=== PATIENT | female | born 1980 | race Caucasian/White ===

== ENCOUNTER 2022-12-26 12:30 | Emergency (ER) | payer OTHER ==
[~2022-12-26] VITALS: Ht 170.2 cm; Wt 106.6 kg
[2022-12-26 12:36] VITALS: BP 142/98
[2022-12-26 13:42] LABS: Source, Urine Clean Catch
[2022-12-26 13:43] LABS: BASOPHILS ABSOLUTE AUTO 0.07 K/mm3 (0.00-0.23); BASOPHILS PERCENT AUTO 1 % (0-2); EOSINOPHILS ABSOLUTE AUTO 0.18 K/mm3 (0.00-0.68); EOSINOPHILS PERCENT AUTO 1 % (0-6); Hematocrit 30.3 % (33.0-51.0); Hemoglobin 9.8 g/dL (11.5-16.0); IMMATURE GRAN ABSOLUTE AUTO 0.18 K/mm3 (0.00-0.10); IMMATURE GRAN PERCENT AUTO 1 % (0-1); LYMPHOCYTES ABSOLUTE AUTO 2.61 K/mm3 (0.84-5.20); LYMPHOCYTES PERCENT AUTO 19 % (21-46); MONOCYTES ABSOLUTE AUTO 1.71 K/mm3 (0.16-1.47); MONOCYTES PERCENT AUTO 12 % (4-13); Mean Corpuscular HGB 26.7 pg (26.0-34.0); Mean Corpuscular HGB Conc 32.3 g/dL (31.5-36.5); Mean Corpuscular Volume 83 fL (80-100); Mean Platelet Volume 10.9 fL (9.1-12.4); NEUTROPHILS ABSOLUTE AUTO 9.09 K/mm3 (1.96-9.15); NEUTROPHILS PERCENT AUTO 66 % (41-73); Platelet Count 377 K/mm3 (150-400); RDW Coefficient Variation 13.4 % (11.7-14.2); RDW Standard Deviation 39.9 fL (35.1-46.3); Red Blood Cell Count 3.67 M/mm3 (3.80-5.20); White Blood Cell Count 13.84 K/mm3 (4.00-11.30)
[2022-12-26 13:46] LABS: Appearance, Urine Clear (Clear); Bilirubin, Urine Neg (Neg); Blood, Urine Neg (Neg); Color, Urine Yellow (P-Yellow); Glucose Qualitative, Urine Neg (Neg); Ketones, Urine 1+ (Neg); Leukocyte Esterase, Urine 1+ (Neg); Nitrite, Urine Neg (Neg); Protein, Urine 2+ (Neg); Urobilinogen, Urine 1+ (Normal)
[2022-12-26 13:54] LABS: Bacteria Rare /hpf; Mucus Light (0-Heavy); Red Blood Cells, Urine 0-2 /hpf (0-2); Squamous Epithelial Cells Many /hpf (Few)
[2022-12-26 14:03] LABS: Albumin, Blood 2.2 g/dL (3.4-5.0); Albumin/Globulin Ratio 0.4 (0.8-1.8); Bilirubin, Total 0.3 mg/dL (0.1-1.0); Bun/Creatinine Ratio 19.8 (12.0-20.0); Calcium, Blood 9.8 mg/dL (8.5-10.1); Creatinine, Blood 0.51 mg/dL (0.40-1.00); Globulin, Blood 4.9 g/dL (2.2-4.0); Potassium, Blood 4.2 mmol/L (3.5-5.5); Total Protein, Blood 7.1 g/dL (6.4-8.2)
[2022-12-27] MEDS ORDERED: ONDA4ODT MM (15:15)
== END 2022-12-26 14:01 | disposition left against medical advice (07) ==
LOC: ER 12:30
PROVIDERS: Physician Assistant; Student in an Organized Health Care Education/Training Program
DX: O26.893 Other specified pregnancy related conditions, third trimester (principal); R10.11 Right upper quadrant pain; Z3A.00 Weeks of gestation of pregnancy not specified; O21.2 Late vomiting of pregnancy; Z53.21 Procedure and treatment not carried out due to patient leaving prior to being seen by health care provider
CPT/HCPCS: 80053; 81001; 83690; 85025; 99282-25

== ENCOUNTER 2023-01-29 07:30 | Inpatient (IN) | payer OTHER ==
[2023-01-29] VITALS (46 sets, daily range): BP systolic 64–155; BP diastolic 15–103
[~2023-01-29] VITALS: Ht 170.2 cm; Wt 106.0 kg
[~2023-01-29 07:30] MED LIST: ONDA4ODT MM; PERM5TC TOP
[2023-01-29] MEDS ORDERED: PRENATAL TABLE1 EAC2 (11:26)
[2023-01-29 11:30] LABS: U Amphetamine Screen Not Detected; U Barbituate Screen Not Detected; U Benzodiazapine Screen Not Detected; U Buprenorphine Screen Not Detected; U Cannabinoids Screen Not Detected; U Cocaine Screen Not Detected; U Methadone Screen Not Detected; U Methamphetamine Screen Not Detected; U Opiates Screen Not Detected; U Oxycodone Screen Not Detected; U Phencyclidine Screen Not Detected; U Propoxyphene Screen Not Detected
[2023-01-29 12:13] LABS: BASOPHILS PERCENT AUTO 1 % (0-2); EOSINOPHILS ABSOLUTE AUTO 0.18 K/mm3 (0.00-0.68); EOSINOPHILS PERCENT AUTO 2 % (0-6); Hematocrit 31.4 % (33.0-51.0); Hemoglobin 10.1 g/dL (11.5-16.0); IMMATURE GRAN ABSOLUTE AUTO 0.09 K/mm3 (0.00-0.10); IMMATURE GRAN PERCENT AUTO 1 % (0-1); LYMPHOCYTES ABSOLUTE AUTO 2.35 K/mm3 (0.84-5.20); LYMPHOCYTES PERCENT AUTO 20 % (21-46); MONOCYTES ABSOLUTE AUTO 1.13 K/mm3 (0.16-1.47); MONOCYTES PERCENT AUTO 10 % (4-13); Mean Corpuscular HGB 25.6 pg (26.0-34.0); Mean Corpuscular HGB Conc 32.2 g/dL (31.5-36.5); Mean Corpuscular Volume 80 fL (80-100); Mean Platelet Volume 12.3 fL (9.1-12.4); NEUTROPHILS ABSOLUTE AUTO 7.93 K/mm3 (1.96-9.15); NEUTROPHILS PERCENT AUTO 67 % (41-73); Platelet Count 367 K/mm3 (150-400); RDW Coefficient Variation 16.3 % (11.7-14.2); RDW Standard Deviation 46.5 fL (35.1-46.3); Red Blood Cell Count 3.94 M/mm3 (3.80-5.20); White Blood Cell Count 11.78 K/mm3 (4.00-11.30)
--- NOTE | 2023-01-29 14:14 | NUR ---
01/29/23 1414 Makenzie Villavicencio MALE DELIVERED VIA REPEAT C/SECTION AT 1400. CORD SEGMENT COLLECTED FOR GASSES. CORD BLOOD COLLECTED FOR TYPING. TAKEN TO NURSERY BY MALVIN WALDEN AND RT ABHIJIT FOR CONTINUED RESPIRATORY CARE.
[2023-01-29 14:41] LABS: PCO2 Cord - Arterial 78.6 mmHg (40-50); pH Cord - Arterial 7.05 (7.28-7.35)
[2023-01-29 14:43] LABS: PO2 Cord - Arterial > 16 mmHg (16-20)
[2023-01-29 14:47] LABS: PCO2 Cord - Venous 75.3 mmHg (40-50); PO2 Cord - Venous < 16 mmHg (28-32); pH Umbilical Cord - Venous 7.09 (7.26-7.35)
--- NOTE | 2023-01-29 18:30 | NUR ---
REPORT TO MALVIN TA
--- NOTE | 2023-01-29 21:23 | NUR ---
NURSERY VISITATION: MOM INTO NURSERY AT 2108 TO SEE . FOB STAYED IN ROOM AFTER BEING WOKEN UP AND TOLD SHE WAS GOING TO SEE BABY, FOB BACK TO SLEEP. PT ACTING APPROPRIATELY WITH AND EXPRESSED INTEREST IN SEEING FROM BEGINNING OF SHIFT BUT HAD TO WAIT FOR SECOND STAFF MEMBER TO BE AVAILABLE FOR TRANSFER. AT BREAST DURING THIS TIME
--- NOTE | 2023-01-29 23:24 | NUR ---
NURSERY VISITATION: MOTHER INTO NURSERY AT 2318 ON 01/29/23. PT CALLED RN INTO ROOM TO REQUEST SEEING AFTER WAKING ON HER OWN. FOB REMAINS ASLEEP AT THIS TIME IN PT ROOM.
[2023-01-30 05:01] VITALS: BP 126/69
[2023-01-30 07:23] LABS: Hematocrit 23.5 % (33.0-51.0); Hemoglobin 7.6 g/dL (11.5-16.0); Mean Corpuscular HGB 25.2 pg (26.0-34.0); Mean Corpuscular HGB Conc 32.3 g/dL (31.5-36.5); Mean Corpuscular Volume 78 fL (80-100); Mean Platelet Volume 11.3 fL (9.1-12.4); Platelet Count 384 K/mm3 (150-400); RDW Coefficient Variation 15.9 % (11.7-14.2); RDW Standard Deviation 44.8 fL (35.1-46.3); Red Blood Cell Count 3.02 M/mm3 (3.80-5.20)
[2023-01-30 07:45] LABS: Albumin, Blood 1.9 g/dL (3.4-5.0); Albumin/Globulin Ratio 0.4 (0.8-1.8); Bilirubin, Total 0.3 mg/dL (0.1-1.0); Bun/Creatinine Ratio 28.2 (12.0-20.0); Calcium, Blood 8.6 mg/dL (8.5-10.1); Creatinine, Blood 0.74 mg/dL (0.40-1.00); Globulin, Blood 4.3 g/dL (2.2-4.0); Potassium, Blood 4.5 mmol/L (3.5-5.5); Total Protein, Blood 6.2 g/dL (6.4-8.2)
[2023-01-30 07:48] LABS: BASOPHILS PERCENT MAN 0 % (0-2); EOSINOPHILS PERCENT MAN 0 % (0-6); LYMPHOCYTES ABSOLUTE MAN 2.65 K/mm3 (0.84-5.20); LYMPHOCYTES PERCENT MAN 9 % (21-46); MONOCYTES ABSOLUTE MAN 0.88 K/mm3 (0.16-1.47); MONOCYTES PERCENT MAN 3 % (4-13); NEUTROPHILS ABSOLUTE MAN 25.96 K/mm3 (1.96-9.15); SEG NEUTROPHILS PERCENT MAN 88 % (41-73); TOTAL CELLS COUNTED 100
[2023-01-30 08:23] VITALS: BP 137/66
--- NOTE | 2023-01-30 09:27 | NUR ---
DR COLLINS UPDATED ON PT WBC, REPORTS TO DO 3 MORE DOSES OF ANCEF. TO LEAVE LOPEZ CATH IN, DR DONOHUE REVIEWED LABS
--- NOTE | 2023-01-30 10:42 | NUR ---
UP TO SHOWER, PT GOT OUT OF BED AND LEAKED A 4CM SIZE OF DARK SYRUP BLOOD.
--- NOTE | 2023-01-30 11:13 | NUR ---
AGREE WITH ABOVE ASSESSMENT
[2023-01-30 12:19] VITALS: BP 140/60
[2023-01-30 16:15] VITALS: BP 129/67
--- NOTE | 2023-01-30 16:28 | NUR ---
PT REPORTS SHE NEEDS TO TALK TO WONDERLY, SHE IS HAVING ALOT MORE PAIN, TALKED TO PT, SHE IS UP MOVING IN ROOM CONSTANTLY, NOT BEING IN BED, HASNT RESTED TODAY. GAVE 2 DASHAWN AND MOTRIN, ENCOURAGED TO STAY IN BED MORE, GETTING UP EVERY 2-3 HOURS TO VOID AND WALK IN RECINOS 3 TIMES, BUT SHE NEEDS TO REST MORE, FOB HAS SLEPT MOST OF DAY AND HASNT REALLY HELPED WITH BABY CARE, THE PT HAS BEEN DOING ALL THE BABY CARE.
--- NOTE | 2023-01-30 17:17 | NUR ---
up to bathroom, changed pad, everytime she leak vag bleeding she feels like she is peeing herself.
--- NOTE | 2023-01-30 19:03 | NUR ---
pt leaving in wheelchair to go outside and smoke, pt is aware it is a non smoking campus, pt reports they arent smoking on campus, pt aware if leaves campus we are to discharge them AMA. she reports she will go outside and get fresh air
[2023-01-30 20:02] VITALS: BP 117/56
[2023-01-31] VITALS (43 sets, daily range): BP systolic 117–167; BP diastolic 56–90
--- NOTE | 2023-01-31 02:22 | NUR ---
AT APPROX RN ROUNDED INTO ROOM AT 0000. NB FOUND TO BE SLEEPING IN BED WITH MOTHER IN THE CROOK OF HER ARM WITH THE FORMULA BOTTLE WEDGED BETWEEN NB'S HEAD AND HER ARM, NB WET WITH FORMULA ON NECK AND BLANKETS. RN WOKE PT AND EDUCATED HER ABOUT SAFE SLEEPING HABITS AND THE RISKS OF CO SLEEPING AND THE DANGER OF FALLING ASLEEP WHILE FEEDING A NB A BOTTLE. PT RECEPTIVE
--- NOTE | 2023-01-31 02:23 | NUR ---
RN IN ROOM AT 0220 TO DC NB'S IV. NB AND MOTHER SLEEPING IN BED TOGETHER, AGAIN NB FOUND TO BE IN CROOK OF PTS ARM AND PT SLOUCHED OVER TOWARDS NB AND SNORING. PT UNDISTURBED WHILE RN IS IN ROOM. ONCE MORE RN REMOVED NB FROM THE BED AND REEDUCATED PT ABOUT THE DANGERS OF CO SLEEPING.
[2023-01-31 07:44] LABS: Performing Lab BLOODWORKS; Test Name ABID
--- NOTE | 2023-01-31 08:31 | NUR ---
PLACED CALL TO DR. ROBERT TO UPDATE REGARDING PT STATUS. PATIENT HR 111. PT STATES SHE IS FEELING "WEAK" THIS AM AND HAS A HEADACHE. DENIES ANY OTHER SYMPTOMS. 500 LR BOLUS NOW ORDERED AND A STAT CBC.
[2023-01-31 09:15] LABS: BASOPHILS ABSOLUTE AUTO 0.04 K/mm3 (0.00-0.23); BASOPHILS PERCENT AUTO 0 % (0-2); EOSINOPHILS PERCENT AUTO 1 % (0-6); Hematocrit 19.4 % (33.0-51.0); Hemoglobin 6.1 g/dL (11.5-16.0); IMMATURE GRAN ABSOLUTE AUTO 0.28 K/mm3 (0.00-0.10); IMMATURE GRAN PERCENT AUTO 2 % (0-1); LYMPHOCYTES ABSOLUTE AUTO 2.16 K/mm3 (0.84-5.20); LYMPHOCYTES PERCENT AUTO 12 % (21-46); MONOCYTES ABSOLUTE AUTO 1.56 K/mm3 (0.16-1.47); MONOCYTES PERCENT AUTO 9 % (4-13); Mean Corpuscular HGB 25.4 pg (26.0-34.0); Mean Corpuscular HGB Conc 31.4 g/dL (31.5-36.5); Mean Corpuscular Volume 81 fL (80-100); Mean Platelet Volume 10.9 fL (9.1-12.4); NEUTROPHILS ABSOLUTE AUTO 13.49 K/mm3 (1.96-9.15); NEUTROPHILS PERCENT AUTO 76 % (41-73); Platelet Count 323 K/mm3 (150-400); RDW Coefficient Variation 16.2 % (11.7-14.2); RDW Standard Deviation 47.5 fL (35.1-46.3); White Blood Cell Count 17.73 K/mm3 (4.00-11.30)
[2023-02-01] VITALS (7 sets, daily range): BP systolic 125–169; BP diastolic 61–87
[2023-02-01 09:54] LABS: BASOPHILS ABSOLUTE AUTO 0.11 K/mm3 (0.00-0.23); BASOPHILS PERCENT AUTO 1 % (0-2); EOSINOPHILS ABSOLUTE AUTO 0.32 K/mm3 (0.00-0.68); EOSINOPHILS PERCENT AUTO 2 % (0-6); Hematocrit 24.9 % (33.0-51.0); Hemoglobin 8.1 g/dL (11.5-16.0); IMMATURE GRAN ABSOLUTE AUTO 0.48 K/mm3 (0.00-0.10); IMMATURE GRAN PERCENT AUTO 3 % (0-1); LYMPHOCYTES ABSOLUTE AUTO 2.82 K/mm3 (0.84-5.20); LYMPHOCYTES PERCENT AUTO 17 % (21-46); MONOCYTES PERCENT AUTO 8 % (4-13); Mean Corpuscular HGB Conc 32.5 g/dL (31.5-36.5); Mean Corpuscular Volume 80 fL (80-100); Mean Platelet Volume 10.7 fL (9.1-12.4); NEUTROPHILS ABSOLUTE AUTO 11.65 K/mm3 (1.96-9.15); NEUTROPHILS PERCENT AUTO 69 % (41-73); NRBC ABSOLUTE 0.02 K/mm3 (0.00-0.02); NRBC Auto 0.1 /100 WBC (0.0-0.2); Platelet Count 442 K/mm3 (150-400); RDW Coefficient Variation 15.9 % (11.7-14.2); RDW Standard Deviation 45.8 fL (35.1-46.3); Red Blood Cell Count 3.12 M/mm3 (3.80-5.20); White Blood Cell Count 16.78 K/mm3 (4.00-11.30)
--- NOTE | 2023-02-01 17:57 | NUR ---
1600 DEMONSTRATED USE OF CATHETER LEG BAG TO PATIENT. PATIENT STATES THAT IT MAKES HER LEG ITCH AND REQUESTED WE SWITCH BACK TO THE [facility] BAG. LEG BAG PLACED IN BELONGINGS BAG FOR PATIENT TO TAKE HOME
--- NOTE | 2023-02-01 21:34 | NUR ---
LOOKING AT [facility] CHART TO SEE DOCUMENTATION REGARDING CPS THERE IS NONE IN [facility] CHART REGARDING BEING CPS CLEARED. PER NICOLETTE RAHMAN RN SHE REPORTED FRANK AND HER HX METH USE AND LACK OF PNC TO CPS HOTLINE. CASE #[id number] PER K[facility] DOCUMENTATION CPS WILL FOLLOW UP AT HOME IF DEEMED APPROPRIATE.
[2023-02-01] MEDS ORDERED: IBUP800 PO (23:41)
[2023-02-01] MEDS ORDERED: OXAYDO5 M1 PO (23:42)
[2023-02-01] MEDS ORDERED: DOCU100 PO (23:43)
[2023-02-02 04:45] VITALS: BP 144/74
[2023-02-02 06:05] LABS: BASOPHILS ABSOLUTE AUTO 0.11 K/mm3 (0.00-0.23); BASOPHILS PERCENT AUTO 1 % (0-2); EOSINOPHILS PERCENT AUTO 3 % (0-6); Hematocrit 22.5 % (33.0-51.0); Hemoglobin 7.2 g/dL (11.5-16.0); IMMATURE GRAN ABSOLUTE AUTO 0.46 K/mm3 (0.00-0.10); IMMATURE GRAN PERCENT AUTO 4 % (0-1); LYMPHOCYTES ABSOLUTE AUTO 2.85 K/mm3 (0.84-5.20); LYMPHOCYTES PERCENT AUTO 22 % (21-46); MONOCYTES ABSOLUTE AUTO 1.15 K/mm3 (0.16-1.47); MONOCYTES PERCENT AUTO 9 % (4-13); Mean Corpuscular HGB 25.9 pg (26.0-34.0); Mean Corpuscular Volume 81 fL (80-100); Mean Platelet Volume 10.4 fL (9.1-12.4); NEUTROPHILS ABSOLUTE AUTO 7.83 K/mm3 (1.96-9.15); NEUTROPHILS PERCENT AUTO 61 % (41-73); Platelet Count 436 K/mm3 (150-400); RDW Coefficient Variation 16.2 % (11.7-14.2); RDW Standard Deviation 46.7 fL (35.1-46.3); Red Blood Cell Count 2.78 M/mm3 (3.80-5.20)
[2023-02-02 07:22] VITALS: BP 147/72
[2023-02-02 08:13] LABS: FERRITIN 41 ng/mL (15-150); IRON BIND.CAP.(TIBC) 670 ug/dL (250-450); IRON SATURATION 6 % (15-55); IRON, SERUM 39 ug/dL (27-159); UIBC 631 ug/dL (131-425)
[2023-02-02 12:33] VITALS: BP 144/74
[2023-02-02 13:01] LABS: Result SEE REPORT
[2023-02-02] MEDS ORDERED: CEPH500 PO (14:06)
[2023-02-02] MEDS ORDERED: PROMETHAZINE12.5 M1 PO (14:09)
--- NOTE | 2023-02-02 15:02 | NUR ---
ARRIVE AT [facility] FOR 0800 APPOINTMENT 02/05/23. PLEASE CHECK IN AT ADMITTING BY EMERGENCY ROOM DOOR AT 0800. PLEASE DO NOT HAVE ANYTHING TO DRINK 6 HOURS PRIOR, STARTING AT 2 AM, MAY DRINK WATER. PLEASE DRINK 10 OUNCE OF WATER AT 7 AM, 7:30 AM; 8:00 AM. IF PUMP ENOUGH FOR 48 HOURS OF FEEDING. THEN PUMP AND DUMP BREASTMILK FOR 48 HOURS AFTER TEST. GO TO OUT PT LAB FOR LAB DRAW.
--- NOTE | 2023-02-02 15:40 | NUR ---
Printed d/c instructions and follow up instructions reviewed w/pt. Questions answered to her satisfaction. Denies additional needs or concerns at this time. No acute changes t/o shift. ID bands matched w/nb and verification form. Pt d/c'd home ambulatory to care of family.
== END 2023-02-02 15:35 | disposition home or self-care (01) | DRG 784 ==
LOC: BC 07:30
PROVIDERS: ADMIT Obstetrics & Gynecology
PROC: 0DNU0ZZ Release Omentum, Open Approach (ICD-10-PCS; 2023-01-29)
PROC: 0TQB0ZZ Repair Bladder, Open Approach (ICD-10-PCS; 2023-01-29)
PROC: 30233N1 Transfusion of Nonautologous Red Blood Cells into Peripheral Vein, Percutaneous Approach (ICD-10-PCS; 2023-01-29)
PROC: 4A033R1 Measurement of Arterial Saturation, Peripheral, Percutaneous Approach (ICD-10-PCS; 2023-01-29)
PROC: 10D00Z1 Extraction of Products of Conception, Low, Open Approach (ICD-10-PCS; principal; 2023-01-29 13:00)
PROC: 0UB70ZZ Excision of Bilateral Fallopian Tubes, Open Approach (ICD-10-PCS; 2023-01-29 13:00)
DX: O34.211 Maternal care for low transverse scar from previous cesarean delivery (principal); D62 Acute posthemorrhagic anemia; O98.42 Viral hepatitis complicating childbirth; O99.324 Drug use complicating childbirth; Z3A.39 39 weeks gestation of pregnancy; Z37.0 Single live birth; O32.1XX0 Maternal care for breech presentation, not applicable or unspecified; B19.20 Unspecified viral hepatitis C without hepatic coma; D56.0 Alpha thalassemia; O35.2XX0 Maternal care for (suspected) hereditary disease in fetus, not applicable or unspecified; O99.62 Diseases of the digestive system complicating childbirth; K80.20 Calculus of gallbladder without cholecystitis without obstruction; O34.83 Maternal care for other abnormalities of pelvic organs, third trimester; N73.6 Female pelvic peritoneal adhesions (postinfective); O77.0 Labor and delivery complicated by meconium in amniotic fluid; O99.334 Smoking (tobacco) complicating childbirth; F17.210 Nicotine dependence, cigarettes, uncomplicated; F12.90 Cannabis use, unspecified, uncomplicated; O99.285 Endocrine, nutritional and metabolic diseases complicating the puerperium; E86.1 Hypovolemia; O90.81 Anemia of the puerperium; Z90.49 Acquired absence of other specified parts of digestive tract; Z79.899 Other long term (current) drug therapy; Z30.2 Encounter for sterilization
CPT/HCPCS: 36415; 36430; 80053; 82728; 82803; 83540; 83550; 85025; 86850; 86870; 86880; 86900; 86901; 86922; 88302; A9270; C9113; J0171; J0690; J1885; J2270; J2371; J2405; J2590; J2765; J3010; J7030; J7120; P9016

== ENCOUNTER 2023-04-28 12:31 | Emergency (ER) | payer OTHER ==
[~2023-04-28] VITALS: Ht 170.2 cm; Wt 77.1 kg
[~2023-04-28 12:31] MED LIST changes: +CEPH500 PO; +DOCU100 PO; +IBUP800 PO; +OXAYDO5 M1 PO; +PRENATAL TABLE1 EAC2; +PROMETHAZINE12.5 M1 PO
[2023-04-28 12:35] VITALS: BP 142/86
== END 2023-04-28 15:13 | disposition home or self-care (01) ==
LOC: ER 12:31
DX: M65.4 Radial styloid tenosynovitis [de Quervain] (principal); Z79.899 Other long term (current) drug therapy
CPT/HCPCS: 29125; 73140; 96372-59; 99283-25; J1885

== ENCOUNTER 2023-05-09 02:01 | Emergency (ER) | payer OTHER ==
[~2023-05-09] VITALS: Ht 170.2 cm; Wt 86.2 kg
[2023-05-09] MEDS ORDERED: ONDA4ODT MM (07:07)
[2023-05-09] MEDS ORDERED: LOPE2C PO (07:07)
[2023-05-09 07:30] VITALS: BP 128/72
== END 2023-05-09 07:35 | disposition home or self-care (01) ==
LOC: ER 02:01
DX: U07.1 COVID-19 (principal); I10 Essential (primary) hypertension; R73.03 Prediabetes; F31.9 Bipolar disorder, unspecified; Z79.899 Other long term (current) drug therapy
CPT/HCPCS: 99283; A9270

== ENCOUNTER 2024-06-29 01:33 | Emergency (ER) | payer OTHER ==
[~2024-06-29] VITALS: Ht 170.2 cm; Wt 104.3 kg
[~2024-06-29 01:33] MED LIST changes: +LOPE2C PO
[2024-06-29] MEDS ORDERED: Ondansetron HCl 2 MG / ML 2ML Vial IV PRN (01:45)
[2024-06-29] MEDS ORDERED: Morphine Sulfate 4 MG/1 ML Injection IV ONE (02:00)
[2024-06-29 02:01] LABS: BASOPHILS ABSOLUTE AUTO 0.08 K/mm3 (0.00-0.23); BASOPHILS PERCENT AUTO 1 % (0-2); EOSINOPHILS ABSOLUTE AUTO 0.25 K/mm3 (0.00-0.68); EOSINOPHILS PERCENT AUTO 2 % (0-6); Hematocrit 40.3 % (33.0-51.0); Hemoglobin 13.6 g/dL (11.5-16.0); Mean Corpuscular HGB Conc 33.7 g/dL (31.5-36.5); Mean Corpuscular Volume 83 fL (80-100); Mean Platelet Volume 10.1 fL (9.1-12.4); Platelet Count 334 K/mm3 (150-400); RDW Coefficient Variation 12.7 % (11.7-14.2); RDW Standard Deviation 38.4 fL (35.1-46.3); Red Blood Cell Count 4.85 M/mm3 (3.80-5.20); White Blood Cell Count 12.82 K/mm3 (4.00-11.30)
[2024-06-29 02:03] LABS: IMMATURE GRAN ABSOLUTE AUTO 0.02 K/mm3 (0.00-0.10); IMMATURE GRAN PERCENT AUTO 0 % (0-1); LYMPHOCYTES ABSOLUTE AUTO 5.38 K/mm3 (0.84-5.20); LYMPHOCYTES PERCENT AUTO 42 % (21-46); MONOCYTES ABSOLUTE AUTO 1.35 K/mm3 (0.16-1.47); MONOCYTES PERCENT AUTO 11 % (4-13); NEUTROPHILS ABSOLUTE AUTO 5.74 K/mm3 (1.96-9.15); NEUTROPHILS PERCENT AUTO 45 % (41-73)
[2024-06-29 02:21] LABS: Albumin, Blood 3.4 g/dL (3.4-5.0); Albumin/Globulin Ratio 0.8 (0.8-1.8); Bilirubin, Total 0.2 mg/dL (0.1-1.0); Bun/Creatinine Ratio 21.9 (12.0-20.0); Calcium, Blood 8.8 mg/dL (8.5-10.1); Creatinine, Blood 0.78 mg/dL (0.40-1.00); Globulin, Blood 4.5 g/dL (2.2-4.0); Total Protein, Blood 7.9 g/dL (6.4-8.2)
[2024-06-29 02:30] VITALS: BP 138/86
[2024-06-29] MEDS ORDERED: FAMO20 PO (03:20)
[2024-06-29] MEDS ORDERED: IBUP600 PO (03:20)
[2024-06-29] MEDS ORDERED: ACET500 PO (03:20)
== END 2024-06-29 03:30 | disposition home or self-care (01) ==
LOC: ER 01:33
PROVIDERS: Emergency Medicine
DX: K80.20 Calculus of gallbladder without cholecystitis without obstruction (principal); I10 Essential (primary) hypertension
CPT/HCPCS: 76705; 80053; 83690; 84703; 85025; 96374; 96375; 99284-25; J2270; J2405

== ENCOUNTER 2024-07-03 23:26 | Emergency (ER) | payer OTHER ==
[~2024-07-03] VITALS: Ht 170.2 cm; Wt 104.3 kg
[~2024-07-03 23:26] MED LIST changes: +ACET500 PO; +FAMO20 PO; +IBUP600 PO
[2024-07-03 23:30] VITALS: BP 155/100
[2024-07-03] MEDS ORDERED: Ondansetron HCl 2 MG / ML 2ML Vial IV ONE (23:30)
[2024-07-03] MEDS ORDERED: Ketorolac Tromethamine 30mg Vial IV ONE (23:35)
[2024-07-03 23:50] LABS: Hematocrit 38.3 % (33.0-51.0); Hemoglobin 12.9 g/dL (11.5-16.0); Mean Corpuscular HGB 27.9 pg (26.0-34.0); Mean Corpuscular HGB Conc 33.7 g/dL (31.5-36.5); Mean Corpuscular Volume 83 fL (80-100); Mean Platelet Volume 10.2 fL (9.1-12.4); Platelet Count 313 K/mm3 (150-400); RDW Coefficient Variation 12.6 % (11.7-14.2); RDW Standard Deviation 38.5 fL (35.1-46.3); Red Blood Cell Count 4.62 M/mm3 (3.80-5.20); White Blood Cell Count 14.15 K/mm3 (4.00-11.30)
[2024-07-03 23:58] LABS: Source, Urine Clean Catch
[2024-07-04] LABS: Bilirubin, Urine Neg (Neg); Blood, Urine Neg (Neg); Glucose Qualitative, Urine Neg (Neg); Ketones, Urine Neg (Neg); Leukocyte Esterase, Urine Neg (Neg); Nitrite, Urine Neg (Neg); Protein, Urine 2+ (Neg); Specific Gravity, Urine 1.025 (1.003-1.022); Urobilinogen, Urine NORM (Normal)
[2024-07-04 00:06] LABS: Appearance, Urine Hazy (Clear); Bacteria Few /hpf; Color, Urine Yellow (P-Yellow); Red Blood Cells, Urine 0-2 /hpf (0-2); Squamous Epithelial Cells Many /hpf (Few); White Blood Cells, Urine 0-2 /hpf (0-5)
[2024-07-04 00:09] LABS: Albumin, Blood 3.4 g/dL (3.4-5.0); Albumin/Globulin Ratio 0.8 (0.8-1.8); BASOPHILS PERCENT MAN 0 % (0-2); Bilirubin, Total 0.2 mg/dL (0.1-1.0); Bun/Creatinine Ratio 29.7 (12.0-20.0); Calcium, Blood 9.6 mg/dL (8.5-10.1); Creatinine, Blood 0.67 mg/dL (0.40-1.00); EOSINOPHILS ABSOLUTE MAN 0.28 K/mm3 (0.00-0.68); EOSINOPHILS PERCENT MAN 2 % (0-6); Globulin, Blood 4.4 g/dL (2.2-4.0); LYMPHOCYTES % ATYPICAL MANUAL 1 % (0-0); LYMPHOCYTES ABSOLUTE MAN 4.95 K/mm3 (0.84-5.20); LYMPHOCYTES PERCENT MAN 34 % (21-46); MONOCYTES ABSOLUTE MAN 0.84 K/mm3 (0.16-1.47); MONOCYTES PERCENT MAN 6 % (4-13); NEUTROPHILS ABSOLUTE MAN 8.06 K/mm3 (1.96-9.15); Potassium, Blood 4.2 mmol/L (3.5-5.5); SEG NEUTROPHILS PERCENT MAN 57 % (41-73); TOTAL CELLS COUNTED 100; Total Protein, Blood 7.8 g/dL (6.4-8.2)
== END 2024-07-04 01:45 | disposition left against medical advice (07) ==
LOC: ER 23:26
PROVIDERS: Physician Assistant
DX: R10.11 Right upper quadrant pain (principal); Z53.21 Procedure and treatment not carried out due to patient leaving prior to being seen by health care provider
CPT/HCPCS: 76705; 80053; 81001; 83690; 84703; 85025; J1885; J2405

== ENCOUNTER 2024-07-07 01:56 | Emergency (ER) | payer OTHER ==
[~2024-07-07] VITALS: Ht 170.2 cm; Wt 104.3 kg
[2024-07-07] MEDS ORDERED: Ondansetron HCl 2 MG / ML 2ML Vial IV PRN (02:20)
[2024-07-07 02:23] LABS: BASOPHILS ABSOLUTE AUTO 0.07 K/mm3 (0.00-0.23); BASOPHILS PERCENT AUTO 1 % (0-2); EOSINOPHILS ABSOLUTE AUTO 0.22 K/mm3 (0.00-0.68); EOSINOPHILS PERCENT AUTO 2 % (0-6); Hematocrit 38.2 % (33.0-51.0); Mean Corpuscular HGB 28.3 pg (26.0-34.0); Mean Corpuscular Volume 83 fL (80-100); Mean Platelet Volume 10.2 fL (9.1-12.4); Platelet Count 307 K/mm3 (150-400); RDW Coefficient Variation 12.7 % (11.7-14.2); RDW Standard Deviation 38.5 fL (35.1-46.3); White Blood Cell Count 13.85 K/mm3 (4.00-11.30)
[2024-07-07 02:26] LABS: IMMATURE GRAN ABSOLUTE AUTO 0.05 K/mm3 (0.00-0.10); IMMATURE GRAN PERCENT AUTO 0 % (0-1); LYMPHOCYTES ABSOLUTE AUTO 4.32 K/mm3 (0.84-5.20); LYMPHOCYTES PERCENT AUTO 31 % (21-46); MONOCYTES ABSOLUTE AUTO 1.43 K/mm3 (0.16-1.47); MONOCYTES PERCENT AUTO 10 % (4-13); NEUTROPHILS ABSOLUTE AUTO 7.76 K/mm3 (1.96-9.15); NEUTROPHILS PERCENT AUTO 56 % (41-73)
[2024-07-07] MEDS ORDERED: FentaNYL Citrate 50 MCG/ML 2 ML Injection IV PRN (02:45)
[2024-07-07 02:46] LABS: Albumin, Blood 3.5 g/dL (3.4-5.0); Albumin/Globulin Ratio 0.8 (0.8-1.8); Bilirubin, Total 0.2 mg/dL (0.1-1.0); Bun/Creatinine Ratio 29.5 (12.0-20.0); Calcium, Blood 9.1 mg/dL (8.5-10.1); Creatinine, Blood 0.58 mg/dL (0.40-1.00); Globulin, Blood 4.2 g/dL (2.2-4.0); Total Protein, Blood 7.7 g/dL (6.4-8.2)
[2024-07-07] MEDS ORDERED: Ketorolac Tromethamine 30mg Vial IV ONE (03:45)
[2024-07-07] MEDS ORDERED: FAMO20 PO (04:24)
[2024-07-07] MEDS ORDERED: ALMACONE SUSPE355 ML PO (04:24)
[2024-07-07 04:25] VITALS: BP 142/88
== END 2024-07-07 04:35 | disposition home or self-care (01) ==
LOC: ER 01:56
PROVIDERS: Emergency Medicine
DX: K80.70 Calculus of gallbladder and bile duct without cholecystitis without obstruction (principal); I10 Essential (primary) hypertension; R73.03 Prediabetes; Z79.899 Other long term (current) drug therapy
CPT/HCPCS: 76705; 80053; 83690; 85025; 96374; 96375; 99284-25; J1885; J2405; J3010